=== PATIENT | male | born 1945 | race Caucasian/White ===

== ENCOUNTER → 2016-07-27 | Outpatient (CLI) | payer MEDICARE, OTHER ==
[~2016-07-27] MED LIST: ASPIR 8181 MG PO; CAVERJECT40 MCG MISC; CLOBETASOL PROP15 GM TOP; DESONIDE TOP; EFUDEX40 GM TOP; METOPROLOL SUCC25 MG PO; MOBIC7.5 MG PO; NEXIUM40 MG PO; NIZORAL 2%15 GM TOP; SYNTHROID25 MCG PO; ZOCOR20 MG PO
== END | disposition short-term general hospital (02) ==
LOC: CLENT 09:16
DX: H93.13 Tinnitus, bilateral (principal); R09.81 Nasal congestion; H91.8X9 Other specified hearing loss, unspecified ear

== ENCOUNTER → 2016-08-03 | Outpatient (CLI) | payer MEDICARE, OTHER | END | disposition short-term general hospital (02) | LOC: CLUROL 09:32 | DX: C61 Malignant neoplasm of prostate (principal) ==